=== PATIENT | male | born 1960 | race Caucasian/White ===

== ENCOUNTER 2024-09-20 06:00 | Observation (INO) ==
--- NOTE | 2024-08-16 08:54 | PAT Medication Instructions ---
Medication Instructions Date of Service August 16, 2024 Home Medications cholecalciferol (vitamin D3) 25 mcg (1,000 unit) tablet (Vitamin D3) 25 mcg PO DAILY lisinopril 20 mg tablet 20 mg PO PM losartan 100 mg tablet 100 mg PO PM metformin 500 mg tablet 1,000 mg PO BID pioglitazone 30 mg tablet (Actos) 30 mg PO PM DO NOT take the morning of surgery cholecalciferol (vitamin D3) 25 mcg (1,000 unit) tablet (Vitamin D3) 25 mcg PO DAILY metformin 500 mg tablet 1,000 mg PO BID Take evening before surgery lisinopril 20 mg tablet 20 mg PO PM losartan 100 mg tablet 100 mg PO PM metformin 500 mg tablet 1,000 mg PO BID pioglitazone 30 mg tablet (Actos) 30 mg PO PM Other Notes NOTHING TO EAT OR DRINK AFTER MIDNIGHT. If you have any questions please call us at [phone] or [phone] or [phone] or [phone]
--- NOTE | 2024-08-20 11:26 | Anesthesiology Consultation ---
Date of Service August 20, 2024 Assessment & Plan (1) Encounter for pre-operative examination: - check BSG am DOS. - awaiting surgeon ordered medical clearance, Dr. Germain Varner 08/30/24. PAT testing to be faxed to PCP. Chart Review Chart Review: Pending: Refer to Additional Notes / Consult section and Patient seen in Pre Admission Testing Teaching & Discussion Pre-Anesthesia Teaching/Discussion Notes: Instructed NPO after midnight before surgery, except medications with 15 cc of water. Medication instructions provided according to the PAT guidelines. History Surgery Operation Date: 09/20/24 11:05 Proposed Procedures p C5-C6, C6-C7 Anterior Cervical Discectomy and Fusion with Spinal Cord Monitoring - Desean Neville, Height/Weight Height: 5 ft 9 in Weight: 72.1 kg Allergies Allergy/AdvReac Type Severity Reaction Status Date / Time No Known Allergies Allergy Verified 08/16/24 07:33 Medications Home Medications Medication Instructions Recorded Confirmed Last Taken cholecalciferol (vitamin D3) 25 25 mcg PO DAILY 08/16/24 08/16/24 Unknown mcg (1,000 unit) tablet (Vitamin D3) lisinopril 20 mg tablet 20 mg PO PM 08/16/24 08/16/24 Unknown losartan 100 mg tablet 100 mg PO PM 08/16/24 08/16/24 Unknown metformin 500 mg tablet 1,000 mg PO BID 08/16/24 08/16/24 Unknown pioglitazone 30 mg tablet (Actos) 30 mg PO PM 08/16/24 08/16/24 Unknown Past Medical History Medical History (Updated 08/20/24 @ 11:45 by Chanelle Garcia PA-C) Borderline high cholesterol no meds per pt Chronic cough denies any recent illness, just reports always has a lot of phlegm Degenerative disc disease Diabetes mellitus, type 2 NIDDM GERD (gastroesophageal reflux disease) controlled, no meds at present Hiatal hernia History of COVID-19 (~2020) denies hospitalization-symptoms resolved Hypertension controlled, stable per pt Spinal stenosis in cervical region Patient denies h/o stroke, seizures, heart attack, heart failure, blood clots/DVTs or blood transfusions. Exercise / Class Metabolic Activity II 4-5 Yardwork/Stairs/Walk up hill (shortness of breath with one flight of stairs ongoing for several years-denies change or worsening; denies chest discomfort) Past Family History Family History Mother Diabetes Sister Diabetes Brother Diabetes Past Surgical History Surgical History History of cardiac cath PH Pedro > no stents > apprx 2019 History of cholecystectomy History of esophagogastroduodenoscopy (EGD) with dilation History of Suzette fundoplication Past Anesthesia History No Hx of Anesthesia Complications and No Family Hx of Anesthesia Complications History of PONV No Hx of PONV and No Hx of Motion Sickness Social History Smoking Status: Former smoker Do You Dip or Chew Tobacco: No (quit in January 2024) Smoking End Date: 30 yrs Hx Alcohol Use: No Hx Substance Use: No substance use type: does not use Review of Systems Snoring, denies witnessed apneas. Patient denies chest pain, fever, chills, wheezing, or palpitations. Physical Exam Vital Signs Vitals BP 152/94 manual left arm P 80 TEMP 97.6 SP02 98% on RA RESP 18 Physical Patient resting comfortably in chair in no acute distress, alert and oriented, responding appropriately throughout visit Full cervical extension range of motion without pain TMD 3.5 finger breadths Mallampati Score 3 Dentition: intact, denies chipped or loose teeth, caps/crowns, implants or bridges Lungs: normal respiratory effort. Good air movement, clear throughout to auscultation, no adventitious breath sounds Cardiac: regular rate and rhythm, no murmurs noted Carotid arteries: negative bruit bilat Lab Results Anesthesia Preop Results Results Anesthesia Widget: WBC 7.00 K/ul (4.8-10.8) 08/20/24 Hgb 11.8 g/dl (14.0-18.0) L 08/20/24 Hct 34.1 % (42.0-52.0) L 08/20/24 Plt 196 K/uL (130-400) 08/20/24 Na 140 mmol/L (136-145) 08/20/24 K 4.0 mmol/L (3.5-5.1) 08/20/24 Cl 105 mmol/L (98-107) 08/20/24 CO2 30 mmol/L (21-32) 08/20/24 BUN 23 mg/dl (6-23) 08/20/24 Creat 1.04 mg/dl (0.6-1.4) 08/20/24 Glucose Level 234 mg/dl (70-99(Fasting)) H 08/20/24 PT 11.4 Seconds (9.0-12.0) 08/20/24 PTT 25 Seconds (21-31) 08/20/24 INR 1.1 (0.9-1.1) 08/20/24 HA1c 10.0 % (4.5-5.6) H 08/20/24 Urine Color Yellow 08/20/24 Urine Appearance Clear (Clear) 08/20/24 Urine pH 5.0 (4.5-7.5) 08/20/24 Urine Specific [place] 1.029 (1.000-1.030) 08/20/24 Urine Protein 1+ (Negative) H 08/20/24 Urine Glucose (UA) 3+ (Negative) H 08/20/24 Urine Ketones Trace (Negative) H 08/20/24 Urine Blood Negative (Negative) 08/20/24 Urine Nitrite Negative (Negative) 08/20/24 Urine Bilirubin Negative (Negative) 08/20/24 Urine Urobilinogen Negative (Negative) 08/20/24 Urine Leukocyte Esterase Negative (Negative) 08/20/24 Urine WBC (Auto) 0-5 /hpf (0-5) 08/20/24 Urine RBC (Auto) 0-2 /hpf (0-2) 08/20/24 Urine Hyaline Casts (Auto) 0-2 /lpf (0-2) 08/20/24 Urine Epithelial Cells (Auto) 0-2 /hpf (0-2) 08/20/24 Urine Bacteria (Auto) None Seen (None Seen) 08/20/24 Blood Type A Negative 08/20/24 Antibody Screen NEGATIVE 08/20/24 Testing Laboratory Results Surgeon's office made aware of elevated A1c. Electrocardiogram Date: 08/20/24 NSR, rate 76 bpm Chest X-Ray Date: 08/20/24 No acute cardiopulmonary disease.
[2024-09-20] MEDS ORDERED: SODIUM CHLORIDE 0.9% PF INJ 10 ML VIAL ONE (06:34)
[2024-09-20] MEDS ORDERED: PROPOFOL IV EMULSION 10 MG/ML 20 ML VIAL IV ONE (06:34)
[2024-09-20] MEDS ORDERED: LIDOCAINE 2% 2 ML VIAL/AMP(20MG/ML) INFIL ONE (06:34)
[2024-09-20] MEDS ORDERED: DEXAMETHASONE SOD INJ 4 MG/ML VIAL ONE (06:34)
[2024-09-20] MEDS ORDERED: ONDANSETRON INJ 2 MG/ML 2 ML VIAL ONE (06:34)
[2024-09-20] MEDS ORDERED: ROCURONIUM BROMIDE 10 MG/ML 5 ML VIAL IV ONE (06:35)
[2024-09-20] MEDS ORDERED: MIDAZOLAM HCL 1 MG/ML 2ML VIAL ONE (06:35)
[2024-09-20] MEDS ORDERED: HYDROmorphone INJ 2 MG/ML SYR/VIAL ONE (06:35)
[2024-09-20] MEDS: LR 60ML/HR IV SCH (06:35)
[2024-09-20] MEDS: CeleBREX 200 MG CAP PO SCH (06:36)
[2024-09-20] MEDS: GABAPENTIN 600 MG DOSE PO SCH (06:36)
[2024-09-20] MEDS: ACETAMINOPHEN 500 MG TAB PO SCH (06:36)
[2024-09-20] MEDS ORDERED: ePHEDrine sulfate 50 MG/ML AMP IV PRN (06:57)
[2024-09-20] MEDS ORDERED: ATROPINE SULFATE 0.1 MG/ML 10ML SYR IV PRN (06:57)
--- NOTE | 2024-09-20 07:36 | History & Physical Bridge Note ---
Date of Service September 20, 2024 History & Physical Bridge Note I have examined the patient, reviewed the History & Physical and in the interval since the performance of the History & Physical I have noted the following changes of clinical significance: no changes noted
--- NOTE | 2024-09-20 07:37 | History & Physical Report ---
Date of Service September 20, 2024 Assessment & Plan (1) Herniation of cervical intervertebral disc with radiculopathy: Plan: Anterior cervical discectomy and fusion C5-C6 C6-C7 History of Present Illness Chief Complaint: Neck and arm pain Primary Care Provider: Germain Ga MD This is a 64-year-old male presents with chronic persistent neck and arm pain after failing course of nonoperative care is here for surgical invention. Allergies Allergy/AdvReac Type Severity Reaction Status Date / Time No Known Allergies Allergy Verified 09/20/24 06:20 Home Medications Medication Instructions Recorded Confirmed Type cholecalciferol (vitamin D3) 25 25 mcg PO DAILY 08/16/24 09/20/24 History mcg (1,000 unit) tablet (Vitamin D3) lisinopril 20 mg tablet 20 mg PO PM 08/16/24 09/20/24 History losartan 100 mg tablet 100 mg PO PM 08/16/24 09/20/24 History metformin 500 mg tablet 1,000 mg PO BID 08/16/24 09/20/24 History pioglitazone 30 mg tablet (Actos) 30 mg PO PM 08/16/24 09/20/24 History semaglutide 0.25 mg or 0.5 mg (2 0.25 mg subcut WK 09/20/24 09/20/24 History mg/3 mL) subcutaneous pen injector (Ozempic) Past Med/Surg History Problem List (Updated 09/20/24 @ 07:36 by Desean Neville DO) Herniation of cervical intervertebral disc with radiculopathy Medical History (Updated 09/20/24 @ 07:36 by Desean Neville DO) Chronic cough denies any recent illness, just reports always has a lot of phlegm Spinal stenosis in cervical region Degenerative disc disease GERD (gastroesophageal reflux disease) controlled, no meds at present Hiatal hernia Diabetes mellitus, type 2 NIDDM Borderline high cholesterol no meds per pt History of COVID-19 (~2020) denies hospitalization-symptoms resolved Hypertension controlled, stable per pt Surgical History History of cholecystectomy History of Suzette fundoplication History of esophagogastroduodenoscopy (EGD) with dilation History of cardiac cath PH Pedro > no stents > apprx 2019 Family History Mother Diabetes Sister Diabetes Brother Diabetes Social History Smoking Status: Former smoker Smoking End Date: 30 yrs; Second Hand Exposure: No; Do You Dip or Chew Tobacco: No (quit in January 2024); Tobacco Cessation Education Requested by Patient: No Hx Alcohol Use: No Hx Substance Use: No Preferred Language: Mauritanian Communication Ability: Effective Supervisor Fabrication And Assembly Required: No Beliefs That Will Affect Care: None Current Living Situation: Spouse Other Information That Helps Us Care for You: No Feels Safe at Home: Yes Safety Concerns: Feels Safe At This Time Assistive Devices: None Physical Exam Physical Exam: Patient is alert and oriented Heart regular rhythm Lungs clear Results & Data Results & Data Vital Signs (Past 12 Hours) Vital Signs Temp Pulse Resp BP Pulse Ox O2 Del Method 09/20/24 06:33 36.5 C 99 H 20 163/98 H 100 Room Air
[2024-09-20] MEDS: ceFAZolin 2000MG 2,000 MG/15 ML SYR IV SCH (07:44)
[2024-09-20] MEDS ORDERED: SUGAMMADEX SODIUM 200 MG/2 ML VIAL IV ONE (08:01)
[2024-09-20] MEDS ORDERED: PHENYLEPHRINE HCL 10 MG/ML VIAL ONE (08:05)
[2024-09-20] MEDS: ceFAZolin 330 MG/ML 1 GM VIAL ONE (09:04)
[2024-09-20] MEDS: FLOSEAL HEMOSTATIC MATRIX 10ML TOP ONE (09:05)
--- NOTE | 2024-09-20 09:14 | Operative Report ---
Post Operative Report Pre & Post Diagnosis Operation Date: 09/20/24 07:45 Pre-Op Diagnosis: Herniation of Cervical Intervertebral Disc with Radiculopathy C5-C6, C6-C7 Post-Op Diagnosis: Herniation of Cervical Intervertebral Disc with Radiculopathy C5-C6, C6-C7 I identified the patient and participated in the time-out.: Yes Procedure Operation Date: 09/20/24 07:45 Actual Procedures #1 anterior cervical discectomy with bilateral foraminotomies C5-C6 C6-C7. #2 anterior cervical arthrodesis C5-C6 C6-C7. #3 placement of Z plate and screws across C5-C7. Surgeon Desean Neville, DO [employer] Driver None Estimated Blood Loss 10 Findings Consistent with Post-Op Diagnosis Specimens None Indications This is a 64-year-old male presents publish diagnosis after failing course of nonoperative care is here for surgical invention. Description of Procedure Patient was met with identified informed consent obtained. Patient was then taken to the operative suite underwent intubation placed in supine position the Buddy table head Diez communications department head. All bony prominences well-padded eyes inspected to ensure no external pressure placed upon them. This point the anterior cervical spine was prepped and draped in normal sterile fashion. The assistance of fluoroscopy identified the C6 vertebral body and a transverse incision was placed along the right anterior aspect of the cervical spine overlying this region. Blunt dissection with assistance of bipolar electrocautery performed down to and exposing the anterior cervical spine from C5-C7. Self-retaining retractors placed. I then performed a complete discectomy of C5-C6 out to the uncovertebral joints bilaterally. [place] distra cting pins utilized to assist in visualization. Removed all posterior annular fibers longitudinal ligament bilateral foraminotomies performed. Endplates burred to subcortical bleeding bone and a 8 mm spiral cage filled with os design bone graft tapped in position. Then proceeded to C6-C7. Again complete discectomy performed up to the ankle vertebral joints bilaterally. [place] distraction pins again utilized. Removed all posterior fibers longitudinal ligament bilateral foraminotomies performed. Endplates burred to subcortical bleeding bone and 9 mm Spira cage filled with os design bone graft tapped position. Distracting apparatus was removed all anterior osteophytes burred to smooth cortical surface and a Z plate and screws applied with the assistance of fluoroscopy. The incision was then copiously irrigated explored to ensure no damage to surrounding structures or remaining bleeding. 10 round HUNTER drain inserted. The incision was then closed with 2 Vicryl in the fashion of 4 M onocryl for final skin closure. Steri-Strips sterile dressing placed. Patient waken taken to PACU stable condition. Please note spinal cord monitoring was utilized out the procedure. Im ordering 10 grams of Triple [place] Collagen Powder (DEMANDIT [id number]) to treat an incision wound that was caused by a spine procedure. The incision is approximately 2 cm(W) x 4 cm(L) into the joint (D) in size and is a full thickness wound. Triple [place] collagen comes in 1 gram packets so 10 packets were ordered. Given the size of the wound, with light to moderate exudate I chose to order a 10 day supply. The patient will be provided instructions for proper application of the collagen wound kit. The patient will be asked to apply the collagen powder daily and then cover it with sterile dressings dispensed. Collagen was selected as I expect the collagen to attract monocytes and fibroblasts, act as a sacrificial substrate for MMPs, and ultimately proved a matrix for tissue and vessel growth. The collagen will act as a primary dressing in this scenario. It is medically necessary for proper healing of these wounds to improve bioavailability and contact with each wound surface, this is also to help prevent infection of wounds and promote healing ultimately leading to a better healing outcome and limit the risk of infection. I attest to the content of the Intraoperative Record and any orders documented therein. Any exceptions are noted below.
[2024-09-20] MEDS: ONDANSETRON INJ 2 MG/ML 2 ML VIAL IV PRN ×2 (10:23→17:59)
[2024-09-20] MEDS: fentaNYL citrate PF 100 MCG/2 ML VIAL IV PRN (10:40)
[2024-09-20] MEDS ORDERED: LORazepam 2 MG/1 ML VIAL IV PRN (11:34)
[2024-09-20] MEDS ORDERED: MAGNESIUM HYDROXIDE SUSP 30 ML UDC PO PRN (11:34)
[2024-09-20] MEDS ORDERED: hydrOXYzine HCl 25 MG TAB PO PRN (11:34)
[2024-09-20] MEDS ORDERED: oxyCODONE HCL IR 5 MG TAB (IMMEDIATE RELEASE) PO PRN (11:34)
[2024-09-20] MEDS ORDERED: ALUMINUM/MAGNESIUM SUSP 30 ML UDC PO PRN (11:34)
[2024-09-20] MEDS ORDERED: traMADol HCL 50 MG TABLET PO PRN (11:34)
[2024-09-20] MEDS ORDERED: PROMETHAZINE 12.5 MG/50.5 ML BAG IV PRN (11:34)
[2024-09-20] MEDS ORDERED: NALOXONE HCL 0.4 MG/1 ML VIAL/CARP IV PRN (11:34)
[2024-09-20] MEDS ORDERED: DO NOT ADMINISTER FLU VACCINE PRN (11:34)
[2024-09-20] MEDS ORDERED: SOD PHOSPHATE/SOD BIPHOSPHATE ENEMA 132 ML BTL PR PRN (11:34)
[2024-09-20] MEDS ORDERED: HYDROmorphone INJ 0.5 MG/0.5 ML SYR IV PRN (11:34)
[2024-09-20] MEDS ORDERED: DO NOT ADMINISTER PNEUMOCOCCAL VACCINE PRN (11:34)
[2024-09-20] MEDS ORDERED: PHARMACY GLYCEMIC MGMT CONSULT PRN (11:34)
[2024-09-20] MEDS ORDERED: dexAMETHasone 8 MG in SYRINGE 0 ML IV PRN (11:34)
[2024-09-20] MEDS ORDERED: LORazepam 0.5 MG TAB PO PRN (11:34)
[2024-09-20] MEDS ORDERED: diphenhydrAMINE Capsule 25 MG CAP PO PRN (11:34)
[2024-09-20] MEDS ORDERED: bisacodyL 10 MG SUPP PR PRN (11:34)
[2024-09-20] MEDS ORDERED: RACEPINEPHRINE 2.25% NEBU SOLN 0.5 ML VIAL INH PRN (11:34)
[2024-09-20] MEDS ORDERED: FAMOTIDINE 20 MG TAB PO PRN (11:34)
[2024-09-20] MEDS ORDERED: HYDROmorphone INJ 1 MG/ML SYRINGE IV PRN (11:34)
[2024-09-20] MEDS ORDERED: ACETAMINOPHEN 1,000 MG/100 ML VIAL IV PRN (11:34)
[2024-09-20] MEDS ORDERED: ONDANSETRON 4 MG OD TAB PO PRN (11:34)
[2024-09-20] MEDS: METOCLOPRAMIDE HCL INJ 5 MG/ML 2 ML VIAL IV PRN (12:08)
[2024-09-20] MEDS ORDERED: DEXTROSE 50% 50 ML SYRINGE IV PRN (12:30)
[2024-09-20] MEDS ORDERED: LANTUS PER UNIT CHARGE SC ONE (12:30)
[2024-09-20] MEDS ORDERED: GLUCAGON FOR INJ 1 MG VIAL SQ PRN (12:30)
[2024-09-20] MEDS ORDERED: GLUCOSE 40% GEL 15 GM TUBE PO PRN (12:30)
[2024-09-20] MEDS ORDERED: GLUCOSE 10 TAB/TUBE PO PRN (12:30)
[2024-09-20] MEDS ORDERED: CARBOHYDRATES FOR HYPOGLYCEMIA PO PRN (12:30)
--- NOTE | 2024-09-20 12:33 | Consultation ---
Date of Consultation September 20, 2024 Assessment & Plan (1) Status post spinal surgery: (2) Herniation of cervical intervertebral disc with radiculopathy: Post op day# 0 S/P ACDF by Dr Kelin GAGNON#10ml Pain management per ortho Wound management per ortho PT/OT as appropriate DVT prophylaxis per ortho Incentive spirometry Monitor H&H for acute blood loss anemia; Pre-op Hgb: 11.8 #Nausea Patient with post op nausea Will obtain CBC, BMP, magnesium labs today (3) Hypertension: Continue lisinopril with holding parameters (4) Diabetes mellitus, type 2: A1c: 10.0 on 08/20/24 Hold home metformin, Actos, Ozempic Basal bolus insulin per protocol. Glycemic pharmacist on board. Appreciate management. (5) CKD (chronic kidney disease), stage III: Cr: 1.0 on labs Monitor renal functions, avoid nephrotoxic agents when possible (6) Chronic anemia: Pre-op hgb: 11.8 Monitor H&H (7) Depression: Continue bupropion (8) GERD (gastroesophageal reflux disease): (9) Hiatal hernia: S/P Suzette fundoplication Continue PPI DVT Prophylaxis SCDs Disposition per primary service Follows with Dr Germain Ga in [place] for routine care Pt was seen and care coordinated with Dr Beth. See addendum I spent a total of 40 minutes reviewing notes, outpatient records, labs, medication, coordinating, documenting and providing care for this patient excluding time spent in the performance of separately billed services. Thank you for this consultation. We will follow the patient with you during their hospital stay. You can reach a member of the [facility] Hospitalist Team 21/04 via [facility] Supervising Physician Co-Signing Physician Notes Patient seen and examined post op Reports surgical site pain is controlled Reports some nausea C collar in place and surgical drain in situ Get CBC, BMP, mag, phos Hold home oral DM meds ISS Pain control Activity per Primary Surgeon Agree with plans as detailed by Kavitha Doe PA-C I spent a total of 35 minutes coordinating, documenting and providing care for this patient excluding time spent in performance of separately billed services History of Present Illness Requesting Physician: Dr Neville Reason for Consultation: Post op medical management Attending Physician: Desean Neville, DO History of Present Illness Patient is 64-year-old male PMH HTN, HLD, DM II, CKD III, GERD, hiatal hernia, history nisin fundoplication, depression seen in medical consultation s/p ACDF by Dr. Neville today. Post op patient reports had some nausea and was given antiemetic and feeling a little better. States pain controlled. Denies fever/chills, diarrhea, constipation, PAN, dizziness, syncope, vision changes, neck pain, CP, SOB, orthopnea, palpitations, cough, sore throat, choking, otalgia, rhinorrhea, abdominal pain, paresthesias, extremity weakness, extremity edema, rashes, urinary symptoms. Allergies Allergy/AdvReac Type Severity Reaction Status Date / Time No Known Allergies Allergy Verified 09/20/24 06:20 Home Medications Medication Instructions Recorded Confirmed Type cholecalciferol (vitamin D3) 25 25 mcg PO DAILY 08/16/24 09/20/24 History mcg (1,000 unit) tablet (Vitamin D3) lisinopril 20 mg tablet 20 mg PO PM 08/16/24 09/20/24 History metformin 500 mg tablet 1,000 mg PO BID 08/16/24 09/20/24 History pioglitazone 30 mg tablet (Actos) 30 mg PO PM 08/16/24 09/20/24 History bupropion HCl 150 mg 24 hr tablet, 150 mg PO DAILY 09/20/24 09/20/24 History extended release oxycodone 5 mg tablet 5 mg PO Q6H PRN pain #20 tabs 09/20/24 09/20/24 Rx pantoprazole 40 mg tablet,delayed 40 mg PO DAILY 09/20/24 09/20/24 History release semaglutide 0.25 mg or 0.5 mg (2 0.25 mg subcut WK 09/20/24 09/20/24 History mg/3 mL) subcutaneous pen injector (Ozempic) tramadol 50 mg tablet 50 mg PO Q6H PRN pain, moderate 09/20/24 09/20/24 Rx #20 tabs Patient History Medical History Depression Chronic anemia CKD (chronic kidney disease), stage III Chronic cough denies any recent illness, just reports always has a lot of phlegm Spinal stenosis in cervical region Degenerative disc disease GERD (gastroesophageal reflux disease) controlled, no meds at present Hiatal hernia Diabetes mellitus, type 2 NIDDM Borderline high cholesterol no meds per pt History of COVID-19 (~2020) denies hospitalization-symptoms resolved Hypertension controlled, stable per pt Surgical History History of cholecystectomy History of Suzette fundoplication History of esophagogastroduodenoscopy (EGD) with dilation History of cardiac cath PH Pedro > no stents > apprx 2019 Family History (Updated 09/20/24 @ 12:35 by Kavitha Doe PA-C) Mother Diabetes Sister Diabetes Brother Diabetes Other Hypertension Social History Smoking Status: Former smoker Smoking End Date: 30 yrs; Second Hand Exposure: No; Do You Dip or Chew Tobacco: No (quit in January 2024); Tobacco Cessation Education Requested by Patient: No Hx Alcohol Use: No Hx Substance Use: No Preferred Language: Wallisian Communication Ability: Effective Service Provider Required: No Beliefs That Will Affect Care: None Current Living Situation: Spouse Other Information That Helps Us Care for You: No Feels Safe at Home: Yes Safety Concerns: Feels Safe At This Time Assistive Devices: None Review of Systems Review of Systems: All systems reviewed & are unremarkable except as noted in HPI & below Physical Exam Physical Exam: General: no distress, WDWN Head: normocephalic, atraumatic Eyes: conjunctiva non-injected, anicteric ENT: normal inspection external ears, nose, mucous membranes moist Neck: +C collar in place, +surgical dressing anterior neck is dry, +HUNTER drain with serosanguineous drainage, trachea midline Lungs: clear, no respiratory distress, no wheezing/rhonchi/rales CV: RRR, no murmur, no pretibial edema Abd: normal BS, soft, non-tender Ext: no cyanosis, no calf tenderness, bilatral pedal pushes and pulls intact, solar sales energy advisor strength strong bilaterally Neuro: A&O x 3, no focal deficits noted, normal affect Skin: warm, dry Results & Data Vital Signs (Past 12 Hours) Vital Signs Temp Pulse Pulse Resp BP Pulse Ox Pulse Ox 09/20/24 11:57 36.5 C 95 H 16 156/78 H 93 09/20/24 11:41 99 H 16 99 09/20/24 11:34 93 09/20/24 11:34 36.5 C 99 H 16 171/91 H 97 09/20/24 11:10 92 H 12 130/73 99 09/20/24 11:00 36.5 C 93 H 10 L 141/76 H 99 09/20/24 10:50 94 H 14 148/78 H 99 09/20/24 10:40 94 H 17 166/91 H 94 09/20/24 10:30 112 H 10 L 181/98 H 97 09/20/24 10:20 94 H 10 L 155/86 H 96 09/20/24 10:10 95 H 16 141/78 H 94 09/20/24 10:00 94 H 12 148/80 H 95 09/20/24 09:50 92 H 15 151/79 H 95 09/20/24 09:40 88 16 149/81 H 96 09/20/24 09:30 86 12 143/74 H 99 09/20/24 09:22 36.1 C L 86 17 141/77 H 100 09/20/24 06:33 36.5 C 99 H 20 163/98 H 100 O2 Del Method O2 Del Method O2 Flow Rate 09/20/24 11:57 Room Air 09/20/24 11:41 Room Air 09/20/24 11:34 Room Air 09/20/24 11:34 Room Air 09/20/24 11:10 Nasal Cannula 2 09/20/24 11:00 Nasal Cannula 2 09/20/24 10:50 Nasal Cannula 2 09/20/24 10:40 Room Air 09/20/24 10:30 Room Air 09/20/24 10:20 Room Air 09/20/24 10:10 Room Air 09/20/24 10:00 Room Air 09/20/24 09:50 Room Air 09/20/24 09:40 Room Air 09/20/24 09:30 Room Air 09/20/24 09:22 Oxymask 10 09/20/24 06:33 Room Air Diagnostic Findings Cervical Spine X-Ray 09/20/24 07:45 FL cervical 2-3V CLINICAL HISTORY: C5-C7 ACDF COMPARISON STUDY: None. FLUOROSCOPY TIME: 9 seconds. Ka,r: 0.70 mGy FLUOROSCOPIC IMAGES: 2 FINDINGS: Fluoroscopy was provided during C5-C7 anterior discectomy and fusion. Hardware is intact. Endotracheal tube is partially imaged. Surgical drain is in place. Linear radiodensity on the initial image is not present on the subsequent image. IMPRESSION: Fluoroscopy provided during C5-C7 anterior discectomy and fusion. ACT 112: Negative or not required by law. Electronically signed by: Rey Longoria M.D. 09/20/2024 3:08 PM
[2024-09-20] MEDS: PANTOprazole 40 MG/10 ML SYR IV ONE (13:47)
[2024-09-20] MEDS: INSULIN ASPART PER UNIT CHARGE SC SCH (13:57)
[2024-09-20] MEDS: LANTUS PER UNIT CHARGE SC ONE (13:58)
--- NOTE | 2024-09-20 13:58 | Pharmacy Report ---
Pharmacy Glycemic Short Note 2 - Date of Service September 20, 2024 - Glycemic Short BSG Results (Last 24 hours): 09/20/24 09/20/24 09/20/24 06:22 09:23 12:45 POC Glucose 181 H 140 H 247 H OUTPATIENT ANTIDIABETIC REGIMEN: * metformin 1000mg po bid * pioglitazone 30mg po qPM * Ozempic 0.25mg SQ weekly. ASSESSMENT: * 64 year old male admitted today for a discectomy and fusion (POD#0). Pharmacy was consulted for glycemic management postop. * Preop BSG was 181mg/dl this morning, 140mg/dl postop, and 247mg/dl at lunch reading. Lantus 20 units (0.3 units/kg) SQ x 1 was ordered. * Patient did receive 8mg iv dexamethasone preop and is ordered dexamethasone 6mg iv daily x 3 days starting tomorrow. * Weight based bolus insulin dosing with a stress between 2 and 3 has been started with lunch today (patient ordered a clear liquid diet) PLAN FOR INPATIENT GLYCEMIC CONTROL: * Hold outpatient diabetes medications * Basal insulin * Lantus 20 units SQ x 1, further dosing will be dependant on additional BSG readings. * Bolus insulin * NovoLog per scale ACHS or Q6hrs while NPO * Goal Range: Low 120 mg/dL - High 150 mg/dL * Correction Factor: 30 mg/dL/unit * Nutritional / Prandial insulin per carb ratio of 1 unit per 10 grams CHO consumed
--- NOTE | 2024-09-20 14:02 | Anesthesiology Progress Note ---
Date of Service September 20, 2024 Anesthesia Post Procedure Vital Signs Vital Signs: Temp Pulse Pulse Resp BP Pulse Ox Pulse Ox 09/20/24 13:29 36.4 C L 102 H 18 165/88 H 98 09/20/24 12:30 36.5 C 95 H 16 124/72 96 09/20/24 11:57 36.5 C 95 H 16 156/78 H 93 09/20/24 11:41 99 H 16 99 09/20/24 11:34 93 09/20/24 11:34 36.5 C 99 H 16 171/91 H 97 09/20/24 11:30 09/20/24 11:10 92 H 12 130/73 99 09/20/24 11:00 36.5 C 93 H 10 L 141/76 H 99 09/20/24 10:50 94 H 14 148/78 H 99 09/20/24 10:40 94 H 17 166/91 H 94 09/20/24 10:30 112 H 10 L 181/98 H 97 09/20/24 10:20 94 H 10 L 155/86 H 96 09/20/24 10:10 95 H 16 141/78 H 94 09/20/24 10:00 94 H 12 148/80 H 95 09/20/24 09:50 92 H 15 151/79 H 95 09/20/24 09:40 88 16 149/81 H 96 09/20/24 09:30 86 12 143/74 H 99 09/20/24 09:22 36.1 C L 86 17 141/77 H 100 09/20/24 06:33 36.5 C 99 H 20 163/98 H 100 O2 Del Method O2 Del Method O2 Flow Rate 09/20/24 13:29 Room Air 09/20/24 12:30 Room Air 09/20/24 11:57 Room Air 09/20/24 11:41 Room Air 09/20/24 11:34 Room Air 09/20/24 11:34 Room Air 09/20/24 11:30 Room Air 09/20/24 11:10 Nasal Cannula 2 09/20/24 11:00 Nasal Cannula 2 09/20/24 10:50 Nasal Cannula 2 09/20/24 10:40 Room Air 09/20/24 10:30 Room Air 09/20/24 10:20 Room Air 09/20/24 10:10 Room Air 09/20/24 10:00 Room Air 09/20/24 09:50 Room Air 09/20/24 09:40 Room Air 09/20/24 09:30 Room Air 09/20/24 09:22 Oxymask 10 09/20/24 06:33 Room Air Pain Intensity Neck: Pain Intensity: 0 Transfer of Care Handoff Completed per policy Notes Mental Status: alert / awake / arousable Patient Amnestic to Procedure: Yes Nausea / Vomiting: adequately controlled Pain: adequately controlled Airway Patency, RR, SpO2: stable & adequate BP & HR: stable & adequate Hydration State: stable & adequate Anesthetic Complications: no major complications apparent and Pt Satisfied with anesthetic care
[2024-09-20 14:42] LABS: Basophils # (auto) 0.05 K/uL (0.00-0.20); Basophils % (auto) 0.5 %; Hematocrit (blood only) 29.9 % (42.0-52.0); Hemoglobin 10.6 g/dl (14.0-18.0); Immature Granulocytes # (auto) 0.05 K/uL (0.01-0.20); Immature Granulocytes % (auto) 0.5 %; Lymphocytes # (auto) 0.73 K/uL (1.20-3.40); Lymphocytes % (auto) 7.3 %; Mean Corpuscular Hemoglobin 30.8 pg (25.0-34.0); Mean Corpuscular Hgb Conc 35.5 g/dL (32.0-36.0); Mean Corpuscular Volume 86.9 fL (80.0-100.0); Mean Platelet Volume 10.7 fL (9.4-12.4); Monocytes # (auto) 0.28 K/uL (0.11-0.59); Monocytes % (auto) 2.8 %; Neutrophils # (auto) 8.84 K/uL (1.40-6.50); Neutrophils % (auto) 88.9 %; Platelet Count 145 K/uL (130-400); RDW Coefficient of Variation 12.7 % (11.5-14.5); RDW Standard Deviation 40.2 fL (36.4-46.3); Red Blood Count 3.44 M/uL (4.70-6.10); White Blood Count 9.95 K/ul (4.8-10.8)
[2024-09-20 14:54] LABS: BUN Creatinine Ratio 19.3 (10-20); Calcium 9.4 mg/dl (8.6-10.3); Creatinine Clr Calc Pharmacy 47.8 ml/min; Potassium 4.4 mmol/L (3.5-5.1)
[2024-09-20 15:00] LABS: Magnesium 0.9 mg/dl (1.7-2.4)
--- NOTE | 2024-09-20 15:09 | Fluoroscopy Report ---
FL cervical 2-3V CLINICAL HISTORY: C5-C7 ACDF COMPARISON STUDY: None. FLUOROSCOPY TIME: 9 seconds. Ka,r: 0.70 mGy FLUOROSCOPIC IMAGES: 2 FINDINGS: Fluoroscopy was provided during C5-C7 anterior discectomy and fusion. Hardware is intact. E ndotracheal tube is partially imaged. Surgical drain is in place. Linear radiodensity on the initial image is not present on the subsequent image. IMPRESSION: Fluoroscopy provided during C5-C7 anterior discectomy and fusion. ACT 112: Negative or not required by law. Electronically signed by: Rey Longoria M.D. 09/20/2024 3:08 PM
[2024-09-20] MEDS: MAGNESIUM SULFATE / D5W 1 GM/100 ML BAG IV SCH (15:24)
[2024-09-20] MEDS: ceFAZolin 1000MG 1,000 MG/7.5 ML SYR IV SCH (17:40)
[2024-09-20] MEDS: ACETAMINOPHEN 500 MG TAB PO PRN (17:52)
[2024-09-20] MEDS ORDERED: LOSARTAN POTASSIUM 50 MG TAB PO SCH (21:00)
[2024-09-20] MEDS ORDERED: NON-FORMULARY MEDICATION (Pioglitazone [Actos] 30 mg Tablet) PO SCH (21:00)
[2024-09-20] MEDS: DOCUSATE SODIUM/SENNA 50/8.6MG TAB PO SCH (21:45)
[2024-09-20] MEDS: lisinopril 20 MG TAB PO SCH (21:47)
[2024-09-20] MEDS: SODIUM CHLORIDE 0.9% 1,000 ML IV SCH (22:31)
[2024-09-21] MEDS: INSULIN ASPART PER UNIT CHARGE SC SCH (00:35)
[2024-09-21] MEDS: POLYETHYLENE (MIRALAX) 17 GM PACK PO SCH (06:04)
[2024-09-21 06:39] LABS: Hemoglobin 10.5 g/dl (14.0-18.0); Mean Corpuscular Hemoglobin 30.8 pg (25.0-34.0); Mean Platelet Volume 10.7 fL (9.4-12.4); Platelet Count 162 K/uL (130-400); RDW Coefficient of Variation 12.8 % (11.5-14.5); RDW Standard Deviation 40.9 fL (36.4-46.3); Red Blood Count 3.41 M/uL (4.70-6.10); White Blood Count 13.02 K/ul (4.8-10.8)
[2024-09-21 06:56] LABS: BUN Creatinine Ratio 17.1 (10-20); Calcium 9.1 mg/dl (8.6-10.3); Creatinine Clr Calc Pharmacy 49.1 ml/min; Magnesium 1.4 mg/dl (1.7-2.4); Potassium 4.1 mmol/L (3.5-5.1)
[2024-09-21 07:29] VITALS: RESP 16; TEMP 98.1
[2024-09-21] MEDS: buPROPion XL 150 MG TABCR PO SCH (08:04)
[2024-09-21] MEDS: PANTOprazole 40 MG TAB PO SCH (08:04)
[2024-09-21] MEDS: dexAMETHasone 6 MG in SYRINGE 0 ML IV SCH (08:05)
--- NOTE | 2024-09-21 08:46 | Discharge Summary ---
Date of Service September 21, 2024 Admission HPI Per Admitting Provider This is a 64-year-old male presents with chronic persistent neck and arm pain after failing course of nonoperative care is here for surgical invention. Principal Diagnosis Cervical spondylosis with radiculopathy Discharge Data Allergies Allergy/AdvReac Type Severity Reaction Status Date / Time No Known Allergies Allergy Verified 09/20/24 06:20 Consultations 09/20/24 11:34 Consult Hospitalist Routine Procedures Performed Operation Date: 09/20/24 07:45 Actual Procedures p C5-C6, C6-C7 Anterior Cervical Discectomy and Fusion, with Application of OSSDsign Bone Graft, Spinal Cord Monitoring(Not Applicable) - Desean Neville DO Ordered Studies 09/20/24 07:45 FL cervical 2-3V Routine Hospital Course (1) Herniation of cervical intervertebral disc with radiculopathy: Patient underwent anterior cervical discectomy and fusion trial as well as taken orthopedic for postoperative. Postoperatively he was swallowing well. No hoarseness. Arm symptoms improved. HUNTER drain decreasing. Excellent strength testing. Subsidy discharged home. Discharge orders instructions from the chart for further review. Total Time Total Time Spent Total Time Spent (In Minutes): 20 minutes Discharge Plan Discharge Items Patient Disposition: Home - Self-Care Reason For Visit: Cervical Spondylosis with Radiculopathy Discharge Diagnosis: Cervical spondylosis with radiculopathy Activity: As commented below Non-emergency contact: Primary Care Provider Call non-emergency contact if: you have any medication questions Follow-up/Referrals: Germain Ga MD [Primary Care Provider] - Diet: Regular Addtl Attending Provider Instructions: ACTIVITY RECOMMENDATIONS: SELF CARE INSTRUCTIONS AFTER CERVICAL FUSIONS 1. No smoking. Smoking drastically decreases the chance of a solid fusion. 2. No bending, lifting more than 5 pounds, or twisting (roll like a log when turning in bed). 3. You may shower 3 days after surgery. Thoroughly dry wound. Do not soak in the tub. 4. Cervical collar: Must be worn at all times including sleeping. You may remove the brace only to bath, eat and if you are sitting in a recliner. 5. Please walk as much as you can for exercise. Gradually increase the distance that you walk as your endurance increases. 6. You may return to previous diet. SPECIAL CARE INSTRUCTIONS: VERY IMPORTANT TO READ AND REVIEW A. Do not take any anti-inflammatory medications (i.e. Indocin, Advil, Aspirin, Naprosyn, Aleve, Motrin, etc.) as these may inhibit the chance of a solid fusion. Tylenol is okay to take. B. Your surgical incision has been closed with a cosmetic suture under the skin that will dissolve in about 6 weeks. In 14 days, you can use a pair of clean scissors and cut the suture that is left outside of the skin at the ends of your incision. C. Complications are uncommon, but please contact us if you have any signs or symptoms of: 1. wound infection (fever higher than 102.5 degrees F, redness, separation of wound, drainage, or increasing pain from the incision) 2. blood clots in legs (pain, swelling, redness and warmth in legs) 3. urinary tract infection (fever higher than 102.5 degrees, burning upon urination or increased frequency of urination) 4. nerve problems (inability to walk on your toes or heels, numbness, loss of bowel or bladder control) 5. any other symptoms that concern you. D. Please call the office at if you have any concerns or questi ons about your operation or recovery. MANAGING PAIN AFTER SPINAL SURGERY 1. Narcotic medication is intended for short-term use and will be provided for surgical pain. Surgical pain usually lasts for a period of 4-6 weeks. Narcotic medication includes Percocet, Vicodin, Darvocet, Tylenol #3 or Lortab. 2. Longer-term pain is more appropriately treated with non-narcotic medication such as Tylenol ES. 3. Muscle spasm is not appropriately treated with narcotics. Muscle relaxers such as Soma, Flexeril or Skelaxin can be used along with Tylenol ES. 4. Remember that we all live with some "aches and pains". This is not unusual or uncommon after an injury or as we get older. 5. We will provide appropriate medication within the normal guidelines of their prescribed use. We will also be very cautious and aware of potential abuse and extended duration of patients' medication needs. 6. Please allow 2-3 days to process refills. Prescriptions will not be mailed but must be picked up at the office. FOLLOW UP VISIT: Keep your scheduled follow-up appointment. Any questions, please call the office at . Pending Studies at Discharge: No Stand-Alone Forms: [facility], Smoking Cessation Medications and DC Order Prescriptions: New tramadol 50 mg tablet 50 mg PO Q6H PRN (Reason: pain, moderate) Qty: 20 0RF Continued metformin 500 mg Tablet 1,000 mg PO BID lisinopril 20 mg Tablet 20 mg PO PM pioglitazone [Actos] 30 mg Tablet 30 mg PO PM cholecalciferol (vitamin D3) [Vitamin D3] 25 mcg (1,000 unit) Tablet 25 mcg PO DAILY Ozempic 0.25 mg or 0.5 mg (2 mg/3 mL) Pen Injector 0.25 mg SUBCUT WK bupropion HCl 150 mg tablet extended release 24 hr 150 mg PO DAILY No Action pantoprazole 40 mg tablet,delayed release (DR/EC) 40 mg PO DAILY Discharge Orders: Discharge Order (Routine); Ordered 09/21/24 Ordered By: Desean Neville Admission Data Admit Date/Time: 09/20/24 09:16 Attending Provider: Desean Neville Admit Provider: Desean Neville Primary Care Provider: Germain Ga Other Providers: Leyda Walden
[2024-09-21 11:31] VITALS: BP 169/89; PULSE 85; O2SAT 97
[2024-09-21] MEDS ORDERED: LANTUS PER UNIT CHARGE SC ONE (12:30)
== END 2024-09-21 12:38 | disposition home or self-care (01) ==
LOC: ASU 06:00 → 3E 06:00
DX: Z87.891 Personal history of nicotine dependence; M48.00 Spinal stenosis, site unspecified; M50.123 Cervical disc disorder at C6-C7 level with radiculopathy; E11.9 Type 2 diabetes mellitus without complications; I10 Essential (primary) hypertension; Z79.85 Long-term (current) use of injectable non-insulin antidiabetic drugs; Z79.84 Long term (current) use of oral hypoglycemic drugs; M50.122 Cervical disc disorder at C5-C6 level with radiculopathy; K21.9 Gastro-esophageal reflux disease without esophagitis; Z79.899 Other long term (current) drug therapy